=== PATIENT | female | born 1955 | race Caucasian/White ===

== ENCOUNTER 2016-08-07 15:13 | Inpatient (IN) | payer OTHER ==
[~2016-08-07] VITALS: Ht 170.2 cm; Wt 71.0 kg
[~2016-08-07 15:13] MED LIST: ASPIR-LOW81 M1; ASPIRIN E.C.81 M1 PO; BISOPROLOL FUMAR5 M1; CIPRO500 MG PO; CITALOPRAM HBR10 M1 PO; Dexilant,Kapidex PO; ENALAPRIL MALEAT5 M1 PO; LANTUS 10100 UNITS/ SC; LANTUS 3 M100 UNITS1 SC; LIDODERM 5% P1 PATCH TD; NOVOLIN 70100 UNITS/ SC; NOVOLIN,HU100 UNITS/ SC; NOVOLOG PE100 UNITS/ SC; PERCOCET 10/1 TABLE1 PO; PERCOCET 5/31 TABLET PO; POTASSIUM CHLO10 ME3 PO; PRAVACHOL40 MG PO; Proventil,Ventolin H IH; TRAZODONE HCL100 MG PO; VASOTEC20 MG PO; VASOTEC5 M1 PO; WELLBUTRIN XL300 MG PO; Zebeta PO; celeXA PO
[2016-08-07 15:30] LABS: POINT-OF-CARE METER ID UU14100415
[2016-08-07 16:07] LABS: EOSINOPHIL (%) 1.6 % (0-5); EOSINOPHIL COUNT 0.2 K/uL (0-0.3); HEMATOCRIT 27.4 % (36.0-46.0); IMMATURE GRANULOCYTE (%) 0.2 % (0.0-0.7); IMMATURE GRANULOCYTE COUNT 0.2 K/uL; LYMPHOCYTE COUNT 1.6 K/uL (1.0-2.8); MCH 28.5 PG (29.0-34.0); MCHC 33.9 G/DL (30.0-36.0); MEAN PLAT.VOLUME 8.3 uM^3 (9.5-12.4); MONOCYTE (%) 6.8 % (3-12); MONOCYTE COUNT 0.7 K/uL (0-0.8); NEUTROPHIL (%) 74.7 % (45-76); NEUTROPHIL COUNT 7.3 K/uL (1.8-6.4); PLATELET COUNT 405 K/uL (156-360); RBC DIS.WIDTH-CV 13.5 % (11.8-14.6); RBC DIS.WIDTH-SD 39.9 % (39-53); RED BLOOD COUNT 3.26 M/uL (3.80-5.20); WHITE BLOOD COUNT 9.8 K/uL (4.1-10.2)
[2016-08-07 16:23] LABS: CHLORIDE 100 mEq/L (99-109); POTASSIUM 4.4 mEq/L (3.7-5.4); SODIUM 134 mEq/L (136-147)
[2016-08-07 16:26] LABS: GLUCOSE 254 mg/dL (70-99)
[2016-08-07 16:27] LABS: ANION GAP 5 MEQ/L (2-14)
[2016-08-07 16:28] LABS: TOTAL BILIRUBIN 0.5 mg/dL (0.0-1.0)
[2016-08-07 16:29] LABS: ALKALINE PHOSPHATASE 185 IU/L (3-129); GFR ESTIMATE (CALCULATED) > 59 mL/min/
[2016-08-07 16:30] LABS: UREA NITROGEN (BUN) 19 mg/dL (9-23)
[2016-08-07 16:33] LABS: LIPASE 20 U/L (1.0-51.0)
[2016-08-07 19:49] LABS: ADD MIUA? YES; BILIRUBIN NEGATIVE; BLOOD SMALL; COLOR YELLOW ((YELLOW)); GLUCOSE (STRIP) NEGATIVE; KETONES NEGATIVE; LEUKOCYTES LARGE; NITRITE NEGATIVE; PROTEIN (STRIP) NEGATIVE; UROBILINOGEN 0.2 MG/DL (0.2-1.0)
[2016-08-07 19:56] LABS: BACTERIA 2+ /HPF; EPITHELIAL CELLS RARE /HPF; MUCUS TRACE /LPF; RED BLOOD CELLS 0-5 /HPF (0-5); UCUL ADDED? YES; WHITE BLOOD CELLS TNTC /HPF (0-5)
[2016-08-07 20:19] LABS: POINT-OF-CARE METER ID UU14100415
[2016-08-07] MEDS ORDERED: VASOTEC2.5 MG PO (20:42)
[2016-08-07] MEDS ORDERED: AMARYL2 MG PO (20:42)
[2016-08-07] MEDS ORDERED: WELLBUTRIN XL300 MG PO (20:42)
[2016-08-07] MEDS ORDERED: LIPITOR40 MG PO (20:43)
[2016-08-07] MEDS ORDERED: DESYREL100 MG PO (20:43)
[2016-08-07] MEDS ORDERED: DEXILANT60 MG PO (20:43)
[2016-08-07] MEDS ORDERED: LANTUS 10100 UNITS/ SC ×2 (20:43)
[2016-08-07] MEDS ORDERED: NITROSTAT0.4 MG SL (20:44)
[2016-08-07] MEDS ORDERED: ABILIFY2 MG PO (20:44)
[2016-08-07] MEDS ORDERED: NOVOLOG 10100 UNITS/ SC (20:44)
[2016-08-07] MEDS ORDERED: ADVAIR 250/501 DISK IH (20:45)
[2016-08-07] MEDS ORDERED: VENTOLIN HFA18 GM IH (20:45)
[2016-08-08] VITALS (7 sets, daily range): BP systolic 121–168; BP diastolic 59–71
[2016-08-08 10:50] LABS: ANION GAP 9 MEQ/L (2-14); CHLORIDE 97 MEQ/L (99-109); GFR ESTIMATE (CALCULATED) > 59 mL/min/; GLUCOSE 244 mg/dL (70-99); POTASSIUM 3.8 MEQ/L (3.7-5.4); SAMPLE HEMOLYSIS CHECK 0; SAMPLE ICTERIC CHECK 0; SAMPLE LIPEMIA CHECK 0; SODIUM 132 MEQ/L (136-147); UREA NITROGEN (BUN) 12 mg/dL (9-23)
[2016-08-08 11:12] LABS: HEMATOCRIT 24.4 % (36.0-46.0); MCH 28.2 PG (29.0-34.0); MCHC 33.2 G/DL (30.0-36.0); MEAN PLAT.VOLUME 8.5 uM^3 (9.5-12.4); PLATELET COUNT 306 K/uL (156-360); RBC DIS.WIDTH-CV 13.8 % (11.8-14.6); RBC DIS.WIDTH-SD 42.5 % (39-53); RED BLOOD COUNT 2.87 M/uL (3.80-5.20)
[2016-08-08 11:18] LABS: WHITE BLOOD COUNT 6.6 K/uL (4.1-10.2)
[2016-08-08 12:46] LABS: POINT-OF-CARE METER ID UU14162513
[2016-08-08 21:39] LABS: POINT-OF-CARE METER ID UU13113700
[2016-08-09 00:22] VITALS: BP 126/58
[2016-08-09 04:18] VITALS: BP 107/59
[2016-08-09 06:40] LABS: EOSINOPHIL (%) 1.8 % (0-5); EOSINOPHIL COUNT 0.1 K/uL (0-0.3); HEMATOCRIT 24.1 % (36.0-46.0); IMMATURE GRANULOCYTE (%) 0.2 % (0.0-0.7); LYMPHOCYTE COUNT 1.1 K/uL (1.0-2.8); MCH 28.3 PG (29.0-34.0); MCHC 33.6 G/DL (30.0-36.0); MCV 84.3 FL (83-99); MEAN PLAT.VOLUME 8.6 uM^3 (9.5-12.4); MONOCYTE (%) 10.6 % (3-12); MONOCYTE COUNT 0.7 K/uL (0-0.8); NEUTROPHIL (%) 70.2 % (45-76); NEUTROPHIL COUNT 4.6 K/uL (1.8-6.4); PLATELET COUNT 306 K/uL (156-360); RBC DIS.WIDTH-CV 13.8 % (11.8-14.6); RBC DIS.WIDTH-SD 42.1 % (39-53); RED BLOOD COUNT 2.86 M/uL (3.80-5.20); WHITE BLOOD COUNT 6.6 K/uL (4.1-10.2)
[2016-08-09 07:01] LABS: ANION GAP 8 MEQ/L (2-14); CHLORIDE 101 MEQ/L (99-109); GFR ESTIMATE (CALCULATED) > 59 mL/min/; POTASSIUM 3.5 MEQ/L (3.7-5.4); SAMPLE HEMOLYSIS CHECK 0; SAMPLE ICTERIC CHECK 0; SAMPLE LIPEMIA CHECK 0; SODIUM 136 MEQ/L (136-147); UREA NITROGEN (BUN) 13 mg/dL (9-23)
[2016-08-09 07:04] LABS: GLUCOSE 54 mg/dL (70-99)
[2016-08-09 08:27] VITALS: BP 123/60
[2016-08-09 11:34] VITALS: BP 129/61
[2016-08-09 12:11] LABS: POINT-OF-CARE METER ID UU13113831
[2016-08-09 14:22] VITALS: BP 146/67
[2016-08-09 20:00] VITALS: BP 134/69
[2016-08-09 22:15] LABS: POINT-OF-CARE METER ID UU13113831
[2016-08-10 06:21] LABS: ANION GAP 8 MEQ/L (2-14); CHLORIDE 101 MEQ/L (99-109); GFR ESTIMATE (CALCULATED) > 59 mL/min/; GLUCOSE 62 mg/dL (70-99); POTASSIUM 3.7 MEQ/L (3.7-5.4); SAMPLE HEMOLYSIS CHECK 0; SAMPLE ICTERIC CHECK 0; SAMPLE LIPEMIA CHECK 0; SODIUM 135 MEQ/L (136-147); UREA NITROGEN (BUN) 10 mg/dL (9-23)
[2016-08-10 07:34] VITALS: BP 119/58
[2016-08-10 08:05] VITALS: BP 119/58
[2016-08-10] MEDS ORDERED: FERROUS SULFAT325 MG PO (09:07)
[2016-08-10] MEDS ORDERED: BACTRIM,SEPT1 TABLET PO (09:07)
[2016-08-10] MEDS ORDERED: COLACE100 MG PO (09:11)
[2016-08-10] MEDS ORDERED: ULTRAM50 MG PO (09:14)
[2016-08-10 10:13] LABS: HEMATOCRIT 24.3 % (36.0-46.0); MCHC 33.3 G/DL (30.0-36.0); MCV 84.1 FL (83-99); PLATELET COUNT 314 K/uL (156-360); RBC DIS.WIDTH-CV 13.6 % (11.8-14.6); RED BLOOD COUNT 2.89 M/uL (3.80-5.20); WHITE BLOOD COUNT 4.8 K/uL (4.1-10.2)
== END 2016-08-10 10:55 | disposition home or self-care (01) | DRG 690 ==
LOC: EME 15:13 → EDOF 08-08 00:22 → 5WEST 08-08 01:03
PROVIDERS: Emergency Medicine; Hospitalist; Nurse Practitioner Adult Health; Physician Assistant
DX: N10 Acute pyelonephritis (principal); E87.1 Hypo-osmolality and hyponatremia; L03.317 Cellulitis of buttock; L02.818 Cutaneous abscess of other sites; K60.4 Rectal fistula; B96.4 Proteus (mirabilis) (morganii) as the cause of diseases classified elsewhere; S81.801A Unspecified open wound, right lower leg, initial encounter; I25.10 Atherosclerotic heart disease of native coronary artery without angina pectoris; E11.319 Type 2 diabetes mellitus with unspecified diabetic retinopathy without macular edema; E11.43 Type 2 diabetes mellitus with diabetic autonomic (poly)neuropathy; K31.84 Gastroparesis; I10 Essential (primary) hypertension; E78.00 Pure hypercholesterolemia, unspecified; J44.9 Chronic obstructive pulmonary disease, unspecified; K21.9 Gastro-esophageal reflux disease without esophagitis; D50.9 Iron deficiency anemia, unspecified; I73.9 Peripheral vascular disease, unspecified; F32.9 Major depressive disorder, single episode, unspecified; F17.210 Nicotine dependence, cigarettes, uncomplicated; Z95.1 Presence of aortocoronary bypass graft; Z85.038 Personal history of other malignant neoplasm of large intestine; Z93.3 Colostomy status; Z90.49 Acquired absence of other specified parts of digestive tract; Z88.1 Allergy status to other antibiotic agents; Z89.421 Acquired absence of other right toe(s)
CPT/HCPCS: 74177; 80048; 80053; 81003; 82948; 83690; 85025; 85027; 87070; 87075; 87077; 87086; 87177; 87186; 87205; 87329; 87493; 94640; 94640 76; 99202; 99281; 99285; J0692; J0696; J1644; J1756; J1815; J1885; J1956; J2270; J2405; J3370; J7030; J7050; S0030

== ENCOUNTER → 2016-09-20 | Outpatient (CLI) | payer OTHER ==
[~2016-09-20] MED LIST changes: +ABILIFY2 MG PO; +ADVAIR 250/501 DISK IH; +AMARYL2 MG PO; +BACTRIM,SEPT1 TABLET PO; +COLACE100 MG PO; +DESYREL100 MG PO; +DEXILANT60 MG PO; +FERROUS SULFAT325 MG PO; +LIPITOR40 MG PO; +NITROSTAT0.4 MG SL; +NOVOLOG 10100 UNITS/ SC; +ULTRAM50 MG PO; +VASOTEC2.5 MG PO; +VENTOLIN HFA18 GM IH
== END | disposition home or self-care (01) ==
LOC: RAD 10:44
DX: K65.1 Peritoneal abscess (principal); L05.92 Pilonidal sinus without abscess; Z85.048 Personal history of other malignant neoplasm of rectum, rectosigmoid junction, and anus
CPT/HCPCS: 74177

== ENCOUNTER → 2016-09-26 | Outpatient (CLI) | payer OTHER | END | disposition home or self-care (01) | LOC: PICC 09:30 | DX: N73.9 Female pelvic inflammatory disease, unspecified (principal) | CPT/HCPCS: 76937; C1769 ==

== ENCOUNTER → 2016-10-17 | Outpatient (CLI) | payer OTHER ==
[2016-10-17 11:18] LABS: POINT-OF-CARE METER ID UU14174212
[2016-10-17 11:29] LABS: INTER. NORMALIZED RATIO 1.1; PROTHROMBIN TIME 11.4 (9.2-11.2); PTT 28.5 (25-32)
== END | disposition home or self-care (01) ==
LOC: OPR 10:00 → EDSTATUS 10:00 → OPR 10:01
PROVIDERS: Radiology Diagnostic Radiology; Surgery
PROC: 0H98XZX Drainage of Buttock Skin, External Approach, Diagnostic (ICD-10-PCS; principal; 2016-10-17)
DX: L02.215 Cutaneous abscess of perineum (principal); L98.8 Other specified disorders of the skin and subcutaneous tissue
CPT/HCPCS: 10030; 82948; 85610; 85730; 87070; 87075; 87076; 87205; C1769; J3010

== ENCOUNTER 2017-01-23 20:14 | Observation (INO) | payer OTHER ==
[~2017-01-23] VITALS: Ht 170.2 cm; Wt 65.2 kg
[2017-01-23 21:26] LABS: ADD MIUA? YES; BILIRUBIN NEGATIVE; BLOOD MODERATE; COLOR YELLOW ((YELLOW)); GLUCOSE (STRIP) NEGATIVE; KETONES NEGATIVE; LEUKOCYTES LARGE; NITRITE NEGATIVE; PROTEIN (STRIP) 100; SPECIFIC GRAVITY 1.014 (1.000-1.030); UROBILINOGEN 0.2 MG/DL (0.2-1.0)
[2017-01-23 21:42] LABS: EOSINOPHIL (%) 1.7 % (0-5); EOSINOPHIL COUNT 0.2 K/uL (0-0.3); HEMATOCRIT 26.4 % (36.0-46.0); IMMATURE GRANULOCYTE (%) 0.5 % (0.0-0.7); IMMATURE GRANULOCYTE COUNT 0.1 K/uL; INSTRUMENT ABS NEUTROPHIL CT 7.4 K/uL; MCH 28.8 PG (29.0-34.0); MCHC 34.5 G/DL (30.0-36.0); MCV 83.5 FL (83-99); MEAN PLAT.VOLUME 8.8 uM^3 (9.5-12.4); MONOCYTE (%) 8.1 % (3-12); MONOCYTE COUNT 0.8 K/uL (0-0.8); NEUTROPHIL (%) 70.5 % (45-76); NEUTROPHIL COUNT 7.4 K/uL (1.8-6.4); PLATELET COUNT 305 K/uL (156-360); RBC DIS.WIDTH-CV 13.2 % (11.8-14.6); RBC DIS.WIDTH-SD 40.3 % (39-53); RED BLOOD COUNT 3.16 M/uL (3.80-5.20); WHITE BLOOD COUNT 10.4 K/uL (4.1-10.2)
[2017-01-23 21:51] LABS: CHLORIDE 103 mEq/L (99-109); POTASSIUM 4.2 mEq/L (3.7-5.4); SODIUM 136 mEq/L (136-147)
[2017-01-23 21:52] LABS: MAGNESIUM 1.7 mg/dL (1.3-2.7)
[2017-01-23 21:53] LABS: GLUCOSE 136 mg/dL (70-99)
[2017-01-23 21:55] LABS: ANION GAP 8 MEQ/L (2-14); TOTAL BILIRUBIN 0.7 mg/dL (0.0-1.0)
[2017-01-23 21:57] LABS: ALKALINE PHOSPHATASE 157 IU/L (3-129); GFR ESTIMATE (CALCULATED) 41 mL/min/
[2017-01-23 21:58] LABS: UREA NITROGEN (BUN) 18 mg/dL (9-23)
[2017-01-23 22:01] LABS: BACTERIA 1+ /HPF; CASTS NONE SEEN /LPF; CRYSTALS NONE SEEN; EPITHELIAL CELLS RARE /HPF; MUCUS NONE SEEN /LPF; UCUL ADDED? YES; WHITE BLOOD CELLS TNTC /HPF (0-5)
[2017-01-23 22:02] LABS: TROP-I INTERPRETATION NEGATIVE; TROPONIN-I < 0.01 ng/mL (0.0-0.30)
[2017-01-24] MEDS ORDERED: DEXILANT60 MG PO (00:44)
[2017-01-24] MEDS ORDERED: ADVAIR 250/501 DISK IH (00:45)
[2017-01-24 02:53] LABS: POINT-OF-CARE METER ID UU13113702
[2017-01-24 04:03] VITALS: BP 169/63
[2017-01-24 07:20] VITALS: BP 169/75
[2017-01-24 13:26] VITALS: BP 169/75
[2017-01-24 18:28] VITALS: BP 124/60
[2017-01-24 19:01] VITALS: BP 112/57
[2017-01-24 23:52] VITALS: BP 121/60
[2017-01-25 06:55] LABS: EOSINOPHIL (%) 2.4 % (0-5); EOSINOPHIL COUNT 0.1 K/uL (0-0.3); HEMATOCRIT 25.4 % (36.0-46.0); IMMATURE GRANULOCYTE (%) 0.2 % (0.0-0.7); INSTRUMENT ABS NEUTROPHIL CT 3.7 K/uL; LYMPHOCYTE COUNT 1.6 K/uL (1.0-2.8); MCH 28.1 PG (29.0-34.0); MCHC 33.5 G/DL (30.0-36.0); MCV 84.1 FL (83-99); MEAN PLAT.VOLUME 8.6 uM^3 (9.5-12.4); MONOCYTE (%) 8.6 % (3-12); MONOCYTE COUNT 0.5 K/uL (0-0.8); NEUTROPHIL (%) 61.4 % (45-76); NEUTROPHIL COUNT 3.7 K/uL (1.8-6.4); PLATELET COUNT 290 K/uL (156-360); RBC DIS.WIDTH-CV 13.4 % (11.8-14.6); RBC DIS.WIDTH-SD 41.5 % (39-53); RED BLOOD COUNT 3.02 M/uL (3.80-5.20)
[2017-01-25 07:12] LABS: ALKALINE PHOSPHATASE 119 IU/L (3-129); ANION GAP 6 MEQ/L (2-14); CHLORIDE 104 MEQ/L (99-109); GFR ESTIMATE (CALCULATED) > 59 mL/min/; POTASSIUM 3.9 MEQ/L (3.7-5.4); SAMPLE HEMOLYSIS CHECK 0; SAMPLE ICTERIC CHECK 0; SAMPLE LIPEMIA CHECK 0; SODIUM 139 MEQ/L (136-147); TOTAL BILIRUBIN 0.5 MG/DL (0.0-1.0); UREA NITROGEN (BUN) 13 mg/dL (9-23)
[2017-01-25 07:20] LABS: GLUCOSE 56 mg/dL (70-99)
[2017-01-25 07:30] VITALS: BP 160/70
[2017-01-25] MEDS ORDERED: CEFTIN500 MG PO (10:37)
[2017-01-25 10:50] VITALS: BP 180/76
== END 2017-01-25 12:12 | disposition home or self-care (01) ==
LOC: EME → EDBD 20:14 → EME 20:14 → 2EAST 01-24 02:02 → EDOF 01-24 02:02 → ENRESERV 01-24 02:05 → 2EAST 01-24 03:00
PROVIDERS: Emergency Medicine; Hospitalist
DX: N39.0 Urinary tract infection, site not specified (principal); E86.0 Dehydration; M54.5 Low back pain; I12.9 Hypertensive chronic kidney disease with stage 1 through stage 4 chronic kidney disease, or unspecified chronic kidney disease; E11.22 Type 2 diabetes mellitus with diabetic chronic kidney disease; N18.3 Chronic kidney disease, stage 3 (moderate); D63.1 Anemia in chronic kidney disease; I25.10 Atherosclerotic heart disease of native coronary artery without angina pectoris; Z95.1 Presence of aortocoronary bypass graft; J44.9 Chronic obstructive pulmonary disease, unspecified; M47.896 Other spondylosis, lumbar region; M48.06 Spinal stenosis, lumbar region; M81.0 Age-related osteoporosis without current pathological fracture; Z85.038 Personal history of other malignant neoplasm of large intestine; Z93.3 Colostomy status; F17.200 Nicotine dependence, unspecified, uncomplicated; Z79.4 Long term (current) use of insulin; Z79.84 Long term (current) use of oral hypoglycemic drugs; Z83.3 Family history of diabetes mellitus; Z82.49 Family history of ischemic heart disease and other diseases of the circulatory system; Z88.1 Allergy status to other antibiotic agents; Z88.8 Allergy status to other drugs, medicaments and biological substances
CPT/HCPCS: 72148; 80053; 81003; 82948; 83735; 84484; 85025; 87077; 87086; 87186; 93005; 94640; 94640 76; 99202; 99281; 99285; G0378; J0696; J1650; J7030; J7050

== ENCOUNTER 2017-04-13 09:43 | Emergency (ER) | payer OTHER ==
[~2017-04-13] VITALS: Ht 170.2 cm; Wt 65.9 kg
[~2017-04-13 09:43] MED LIST changes: +CEFTIN500 MG PO
[2017-04-13 09:45] VITALS: BP 142/97
[2017-04-13] MEDS ORDERED: PERCOCET 5/31 TABLET PO (10:44)
== END 2017-04-13 11:16 | disposition home or self-care (01) ==
LOC: EME 09:43
DX: S42.291A Other displaced fracture of upper end of right humerus, initial encounter for closed fracture (principal); W07.XXXA Fall from chair, initial encounter; E11.9 Type 2 diabetes mellitus without complications; Z79.4 Long term (current) use of insulin; F17.200 Nicotine dependence, unspecified, uncomplicated; Z85.038 Personal history of other malignant neoplasm of large intestine; Z95.1 Presence of aortocoronary bypass graft; Z93.3 Colostomy status; Z88.8 Allergy status to other drugs, medicaments and biological substances
CPT/HCPCS: 73060; 99281; 99283

== ENCOUNTER 2017-08-14 21:38 | Emergency (ER) | payer OTHER ==
[~2017-08-14] VITALS: Ht 170.2 cm; Wt 64.6 kg
[2017-08-15 00:21] VITALS: BP 138/57
== END 2017-08-15 00:43 ==
LOC: EME → EDSEX 21:38 → EME 21:38 → EDBD 21:38 → EME 08-15 00:43
DX: T85.628A Displacement of other specified internal prosthetic devices, implants and grafts, initial encounter (principal); I12.9 Hypertensive chronic kidney disease with stage 1 through stage 4 chronic kidney disease, or unspecified chronic kidney disease; E11.22 Type 2 diabetes mellitus with diabetic chronic kidney disease; N18.9 Chronic kidney disease, unspecified; Z79.4 Long term (current) use of insulin; J44.9 Chronic obstructive pulmonary disease, unspecified; F17.200 Nicotine dependence, unspecified, uncomplicated; K21.9 Gastro-esophageal reflux disease without esophagitis; Z95.1 Presence of aortocoronary bypass graft; Z85.038 Personal history of other malignant neoplasm of large intestine; F32.9 Major depressive disorder, single episode, unspecified
CPT/HCPCS: 99281; 99284